=== PATIENT | female | born 1970 | race Caucasian/White ===

== ENCOUNTER 2017-04-25 18:59 | Emergency (ER) | payer OTHER ==
[~2017-04-25] VITALS: Ht 160 cm; Wt 99.3 kg
[~2017-04-25 18:59] MED LIST: BLOOD PRESSURE MED; MEDROLDOSEPACK PO; NOHOMEMEDICATIONS; NORVASC 5 MG TAB5 MG; PEPCID40 MG PO; PREDNISONE 10 M10 M1 PO; TESSALON200 MG PO; VISTARIL 25 MG25 M1 PO; ZPAK PO
[2017-04-25] MEDS ORDERED: LISINOPRIL5 MG (19:12)
[2017-04-25 19:43] LABS: URINE BILIRUBIN NEGATIVE (Negative); URINE BLOOD TRACE (Negative); URINE CLARITY CLEAR; URINE COLOR YELLOW; URINE GLUCOSE-RANDOM NEGATIVE (Negative); URINE KETONES TRACE (Negative); URINE LEUKOCYTES-REFLEX NEGATIVE (Negative); URINE NITRITE-REFLEX NEGATIVE (Negative); URINE PROTEIN TRACE (Negative)
[2017-04-25 19:55] LABS: ABSOLUTE EOSINOPHILS 0.1 thou/uL (0.0-0.7); ABSOLUTE LYMPHOCYTES 1.6 thou/uL (0.8-5.3); ABSOLUTE MONOCYTES 0.7 thou/uL (0.0-1.2); ABSOLUTE NEUTROPHILS 9.2 thou/uL (1.6-8.1); BASOPHILS 0.4 %; EOSINOPHILS 0.9 %; HEMATOCRIT 44.3 % (37.0-47.0); HEMOGLOBIN 14.8 gm/dL (12.0-15.0); LYMPHOCYTES 14.1 %; MCHC 33.4 g/dL (28.0-37.0); MCV 89.6 fL (80.0-100.0); MONOCYTES 5.6 %; MPV 8.4 fl. (7.2-11.1); NUCLEATED RBCS 0 /100WBC; PLATELET COUNT* 248 thou/uL (150-400); RBC 4.94 mil/uL (4.20-5.00); RDW-CV 13.4 % (10.5-14.5); WBC 11.6 thou/uL (4.0-11.0)
[2017-04-25 20:04] LABS: CALCIUM 8.8 mg/dL (8.5-10.1); POTASSIUM 3.4 mmol/L (3.5-5.1)
[2017-04-25 20:08] LABS: ALBUMIN 3.8 g/dL (3.4-5.0); TOTAL BILIRUBIN 0.4 mg/dL (<0.1-1.0); TOTAL PROTEIN 7.4 g/dL (6.4-8.2)
[2017-04-25] MEDS ORDERED: NORCO 5-325 TA1 EAC1 PO (22:06)
[2017-04-25] MEDS ORDERED: PHENERGAN 25 MG25 M1 PO (22:06)
[2017-04-25] MEDS ORDERED: ZOFRAN ODT4 MG PO (22:06)
[2017-04-25 22:25] VITALS: BP 105/62
== END 2017-04-25 22:26 | disposition home or self-care (01) ==
LOC: M.ERS 18:59
PROVIDERS: Physician Assistant
DX: R11.2 Nausea with vomiting, unspecified (principal); R19.7 Diarrhea, unspecified; R10.31 Right lower quadrant pain; G51.0 Bell's palsy; Z90.711 Acquired absence of uterus with remaining cervical stump; Z90.49 Acquired absence of other specified parts of digestive tract; Z88.6 Allergy status to analgesic agent

== ENCOUNTER 2019-08-18 18:41 | Emergency (ER) | payer OTHER ==
[~2019-08-18] VITALS: Ht 160 cm; Wt 106.6 kg
[~2019-08-18 18:41] MED LIST changes: +LISINOPRIL5 MG; +NORCO 5-325 TA1 EAC1 PO; +PHENERGAN 25 MG25 M1 PO; +ZOFRAN ODT4 MG PO
[2019-08-18] MEDS ORDERED: NORCO 5-325 TA1 EAC1 PO ×2 (19:53→19:57)
[2019-08-18 20:21] VITALS: BP 152/77
--- NOTE | 2019-08-19 08:09 | EKG ---
[place] [address] ELECTROCARDIOGRAM REPORT Name: MARIA LUISAMARTIN Room: [facility]#: [id number] Admission: 08/18/19 Attend Phys: Discharge: 08/18/19 Date of : 70 Date of Service: 08/18/191942 Report #: [id number] THIS REPORT FOR: //name// [facility] ED Test Date: 2019-08-18 Test Time: 19:43:14 Pat Name: MARTIN GLASS Department: Room: Gender: Branch Specialist: [facility] : 1970 Requested By: Jesus Taylor Order Number: [id number] MD: Kyle Nunez Measurements Intervals [place] Rate: 67 P: 49 MI: 191 QRS: 12 QRSD: 108 T: 33 QT: 411 QTc: 434 Interpretive Statements Sinus rhythm Low voltage, precordial leads Baseline wander in lead(s) V4 No previous ECG available for comparison Electronically Signed On 08-19-2019 8:07:55 CDT by Kyle Nunez [email or web address] <ELECTRONICALLY SIGNED> By: Kyle Nunez MD, FAC 08/19/19 0807 42 42 Kyle Nunez MD, [facility] /EPI
== END 2019-08-18 20:22 | disposition home or self-care (01) ==
LOC: M.ERS 18:41
DX: M79.601 Pain in right arm (principal); G51.0 Bell's palsy; Z90.49 Acquired absence of other specified parts of digestive tract; Z90.710 Acquired absence of both cervix and uterus; Z88.6 Allergy status to analgesic agent

== ENCOUNTER → 2020-01-25 | Outpatient (CLI) | payer OTHER | LOC: M.MRI 07:19 | PROVIDERS: ATTEND Orthopaedic Surgery | DX: M75.101 Unspecified rotator cuff tear or rupture of right shoulder, not specified as traumatic (principal); M19.011 Primary osteoarthritis, right shoulder ==